=== PATIENT | female | born 1935 | race Caucasian/White ===

== ENCOUNTER 2017-06-04 14:56 | Emergency (ER) | payer OTHER, BC ==
[2017-06-04] MEDS ORDERED: ASPIRIN 81 MG CHEWABLE TAB PO ONE (15:04)
[2017-06-04] MEDS ORDERED: NS 500 ML IV ONE (15:04)
--- NOTE | 2017-06-04 15:09 | CPEKG ---
Heart Rate: 70 RR Interval: 857 P-R Interval: 187 QRSD Interval: 144 QT Interval: 464 QTC Interval: 501 P [place]: 29 QRS [place]: -85 T Wave [place]: -27 EKG Severity - ABNORMAL ECG - EKG Impression: ATRIAL-PACED COMPLEXES EKG Impression: PROBABLE LEFT ATRIAL ABNORMALITY EKG Impression: RIGHT BUNDLE BRANCH BLOCK Electronically Signed By: Leonie Hunter 04-Jun-2017 21:05:13
[2017-06-04 15:14] LABS: PLATELET COUNT 241 10^3/uL (150-400)
[2017-06-04 15:23] LABS: INR 1.09 (0.83-1.16); PROTIME(PATIENT) 14.3 SEC (12.0-15.0)
[2017-06-04 15:30] LABS: CREATINE KINASE 64 IU/L (0-156)
[2017-06-04 15:34] VITALS: TEMP 98.6
[2017-06-04] MEDS ORDERED: NITROGLYCERIN 0.4 MG BTL SL ONE ×2 (16:17→16:19)
[2017-06-04] MEDS ORDERED: LORazepam 2 MG/ML INJ ONE (16:24)
[2017-06-04] MEDS ORDERED: AMIODARONE HCL 150 MG/100 ML BAG (1.5 MG/ML) IV ONE (16:25)
[2017-06-04] MEDS ORDERED: AMIODARONE HCL 100 ML IV ONE (16:29)
[2017-06-04] MEDS ORDERED: NOREPINEPHRINE/NS 500 ML IV ONE (16:33)
[2017-06-04] MEDS ORDERED: NS 2,000 ML IV ONE (16:39)
--- NOTE | 2017-06-04 16:42 | CPEKG ---
Heart Rate: 65 RR Interval: 923 P-R Interval: 84 QRSD Interval: 288 QT Interval: 504 QTC Interval: 525 QRS [place]: -91 T Wave [place]: 61 EKG Severity - ABNORMAL ECG - EKG Impression: A-V DUAL-PACED RHYTHM WITH SOME INHIBITION EKG Impression: RIGHT BUNDLE BRANCH BLOCK EKG Impression: LEFT VENTRICULAR HYPERTROPHY Electronically Signed By: Leonie Hunter 04-Jun-2017 21:05:13
[2017-06-04 16:50] VITALS: O2SAT 94
[2017-06-04 17:11] VITALS: BP 60/44; PULSE 78; RESP 12
--- NOTE | 2017-06-04 17:16 | EDPHY ---
H & P Time Seen by Provider: 06/04/17 15:04 HPI/ROS: HPI Chest pain. 81-year-old female by private vehicle with her . This patient has a history of sick sinus syndrome, ventricular tachycardia, angina, takotsubo cardiomyopathy. She presents with chest pain onset at 2:00 p.m. this afternoon. She was given 2 sublingual nitroglycerin tablets by her who accompanies her. She swallowed 1 by accident. The other when she absorb sublingual. She had some relief with this but then her chest pain came back and her brought her to the emergency department. On arrival she denies any chest pain currently. ROS: Constitutional: No fever, no chills. No weakness. Eyes: No discharge. No changes in vision. ENT: No sore throat. No nasal congestion or rhinorrhea. Respiratory: No cough. No shortness of breath. Cardiac: Chest pain, no palpitations. Gastrointestinal: No abdominal pain, no vomiting, no diarrhea. Genitourinary: No hematuria. No dysuria or increased frequency with urination. Musculoskeletal: No back pain. No neck pain. No myalgias or arthralgias. Skin: No rashes. Neurological: No headache. No focal weakness or altered sensation. History and review of systems limited secondary to her dementia. She answers no tp every question except for chest pain. Past medical history: Advanced Alzheimer's dementia, bilateral total hip replacements, myocardial infarction, as above, breast cancer. Primary care is through [facility]. Heat Treat Inspector is Dr. Sanford. Social history: Former smoker. Here with her . No alcohol. Physical Exam: General Appearance: Alert, no distress. This patient is responding to questions appropriately and in full sentences. This patient appears well- hydrated and well-nourished. Eyes: Pupils equal and round no pallor or injection. No lid edema, erythema or injection. Respiratory: There are no retractions, lungs are clear to auscultation area with good air movement bilaterally. Cardiovascular: Irregular rhythm. No murmur. Gastrointestinal: Abdomen is soft and nontender, no masses, bowel sounds normal. No focal tenderness at McBurney's point. No Segura sign. Neurological: Motor sensory function is grossly intact. Cranial nerves are normal. Gait is normal. Skin: Warm and dry, multiple cysts on anterior frontal scalp. Musculoskeletal: Neck is supple and nontender. Extremities are symmetrical. All joints range without pain or impingement. Psychiatric: No agitation. No depression. Database: EKG: EKG time is 3:07 p.m.: EKG shows a narrow complex sinus rhythm with intermittent sinus pause and atrial paced complexes. Right bundle branch block noted. No ST, T-wave inversions noted in lead 3 and V3. Interpreted by me. EKG time is 4:41 p.m.: Ventricular paced wide complex rhythm with rate of 65. Interpreted by me. Imaging: Chest x-ray AP portable; pacemaker. No evidence of infiltrate pneumothorax. No acute cardiopulmonary disease process noted. Interpreted by me. Procedures: Emergency department course: IV placed. Vital signs reviewed. Moderately hypertensive. Afebrile. No chest pain at this time. She was given 324 mg of chewed aspirin. EKG obtained and reviewed by myself. 4:10 p.m., patient re-evaluated. She states that she is having some chest pain. She was given 1 sublingual nitroglycerin. Pain described as tightness in left upper chest. Moderate air continues to show a narrow complex rhythm. Repeat EKG ordered. 4:20 p.m., talking to patient, she suddenly complained of a cramping in her esophagus. She then went into a decerebrate posture eyes rolled back of her head. Some seizure-like activity with stiffening of her arms. Resuscitation immediately started with bag-valve mask oxygen, high-flow nasal cannula oxygen, patient immediately transferred to room 2. Advanced airway equipment to the bedside. A 2nd IV was established. dining room busser shows a wide complex regular tachycardia at 1:10 a.m. indicative of ventricular tachycardia. Patient started on IV normal saline bolus 500 cc. Blood pressure decreased to 60/40. Patient given 150 mg of IV amiodarone. She will be started on Levophed at 4 micrograms/minute. Dr. Rahel Arambula discussed resuscitation decisions with her who is power of contract attorney. I was present for the end of this discussion. The has decided he does not want the patient resuscitated or intubated. The patient subsequently degenerated into ventricular fibrillation followed by PEA. Ultrasound revealed no cardiac activity at 4:43 p.m.. Time of was called at 4:43 p.m.. Differential Diagnosis: The differential diagnosis on this patient includes but is not limited to acute coronary syndrome, CVA, massive PE, seizure, ventricular tachycardia, cardiopulmonary arrest. This represents a partial list of diagnoses considered. These considerations are based on history, physical exam, past history, reassessment and diagnostic testing. Smoking Status: Never smoked Constitutional: Initial Vital Signs Temperature (C) 37 C 06/04/17 15:30 Heart Rate 70 06/04/17 15:30 Respiratory Rate 20 06/04/17 15:30 Blood Pressure 159/106 H 06/04/17 15:30 O2 Sat (%) 93 06/04/17 15:30 O2 Delivery Mode Bag Valve Mask O2 (L/minute) 15 Allergies/Adverse Reactions: oxycodone [Oxycodone] Allergy (Intermediate, Verified 10/03/11 16:46) NAUSEATED AGED CHEESE Allergy (Intermediate, Uncoded 10/03/11 16:46) GI UPSET/MIGRAINES CHOCOLATE Allergy (Intermediate, Uncoded 10/03/11 16:46) GI UPSET/MIGRAINES CURED MEATS Allergy (Intermediate, Uncoded 10/03/11 16:46) GI UPSET/MIGRAINES RED WINE Allergy (Intermediate, Uncoded 10/03/11 16:46) GI UPSET/MIGRAINES Home Medications: Medication Instructions Recorded Benazepril HCl [Lotensin (*)] 5 mg PO DAILY 01/21/14 Multivitamins [Multivitamin (*)] 1 each PO DAILY 01/21/14 Omeprazole [Prilosec 20 mg] 20 mg PO DAILY 01/21/14 Aspirin EC [Aspirin EC 325 mg (*)] 325 mg PO DAILY #0 tab 01/22/14 Medical Decision Making Critical Care Time: I spent a total of 32 minutes of critical care time in obtaining history, performing a physical exam, bedside monitoring of interventions, collecting and interpreting tests and discussion with consultants but not including time spent performing procedures. - Data Points Laboratory Results: Laboratory Results 06/04/17 15:00 06/04/17 15:00 Medications Given: Discontinued Medications Aspirin (Aspirin) 324 mg PO EDNOW ONE Stop: 06/04/17 15:05 Last Admin: 06/04/17 15:26 Dose: Not Given Sodium Chloride (Ns) 500 mls @ 1,000 mls/hr IV EDNOW ONE PRN Reason: Protocol Stop: 06/04/17 15:33 Last Admin: 06/04/17 15:55 Dose: 500 mls Amiodarone HCl (Amiodarone Hcl) 100 mls @ 600 mls/hr IV ONCE ONE Stop: 06/04/17 16:38 Last Admin: 06/04/17 16:29 Dose: 100 mls Norepinephrine/Sodium Chloride (Norepinephrine 8 Mcg/Ml (Premix)) 500 mls @ 0 mls/hr IV EDNOW ONE; Per Protocol PRN Reason: Protocol Stop: 06/04/17 16:34 Last Admin: 06/04/17 16:41 Dose: 500 mls Sodium Chloride (Ns) 2,000 mls @ 0 mls/hr IV ONCE ONE PRN Reason: Wide Open Stop: 06/04/17 16:40 Last Admin: 06/04/17 16:40 Dose: 2,000 mls Nitroglycerin (Nitrostat) 0.4 mg SL EDNOW ONE Stop: 06/04/17 16:20 Last Admin: 06/04/17 16:21 Dose: 1 tab Departure - Departure Disposition: Clinical Impression: Cardiopulmonary arrest
[2017-06-04] MEDS ORDERED: ETOMIDATE 40 MG/20 ML INJ ONE (18:25)
== END 2017-06-04 18:34 | disposition expired ==
LOC: EDUNIT#
DX: I46.9 Cardiac arrest, cause unspecified (principal); G30.9 Alzheimer's disease, unspecified; I25.2 Old myocardial infarction; E86.9 Volume depletion, unspecified; Z79.82 Long term (current) use of aspirin; Z85.3 Personal history of malignant neoplasm of breast; Z87.891 Personal history of nicotine dependence
CPT/HCPCS: 71045; 93005; 96374; 96375; 99291; J0282; J2060